=== PATIENT | male | born 2000 | race Caucasian/White ===

== ENCOUNTER 2021-04-27 09:33 | Emergency (ER) | payer BC, OTHER ==
--- NOTE | 2021-04-27 11:04 | EDPHYS ---
Physician Documentation [facility] Name: Raleigh Mendoza Age: 21 yrs Sex: Male : 2000 Arrival Date: 04/27/2021 Time: 09:39 Bed 13 Private MD: ED Physician Jesu Sidhu HPI: 04/27 10:30 This 21 yrs old Male presents to ER via Ambulatory with complaints of Foot Pain. rn 10:30 The patient presents with an injury, pain. The complaints affect the left foot. Onset: rn The symptoms/episode began/occurred 1 week(s) ago. Modifying factors: The symptoms are alleviated by nothing, the symptoms are aggravated by weight bearing. Associated signs and symptoms: Pertinent positives: swelling, Pertinent negatives: weakness. Severity of symptoms: At their worst the symptoms were moderate, in the emergency department the symptoms are unchanged. The patient has not experienced similar symptoms in the past. The patient has not recently seen a physician. REports left foot/heel pain after stomping on hard ground. NO fall or misstep. Reports isolated pain to left heel. Happened last week, pain not going away so concerned is broken. No ankle or achilles pain.. Historical: - Allergies: 09:46 No Known Allergies; ph - PSHx: 09:46 Appendectomy; ph - Immunization history:: Adult Immunizations unknown. - Social history:: Smoking status: Patient denies any tobacco usage or history of. - Family history:: not pertinent. - Hospitalizations: : No recent hospitalization is reported. ROS: 10:30 Constitutional: Negative for fever, chills, and weight loss, MS/Extremity: + injury and rn pain to left heel Exam: 10:30 Constitutional: This is a well developed, well nourished patient who is awake, alert, rn and in no acute distress. MS/ Extremity: Pulses equal, no cyanosis. Neurovascular intact. + mild swelling to left heel. No open wounds. No bony tenderness of rest of foot/ankle. FROM at ankle and no signs of achilles dysfunction. Vital Signs: 09:44 BP 135 / 78; Pulse 78; Resp 18; Temp 98.1; Pulse Ox 100% on R/A; Weight 89.81 kg; ph Height 6 ft. 3 in. (190.50 cm); 10:16 BP 131 / 80; Pulse 80; Resp 16; Pulse Ox 100% ; bp 11:16 BP 123 / 84; Pulse 78; Resp 16; Pulse Ox 100% ; bp 09:44 Body Mass Index 24.75 (89.81 kg, 190.50 cm) ph MDM: 09:40 Patient medically screened. rn 11:03 Differential diagnosis: fracture, sprain, contusion. Data reviewed: vital signs, nurses rn notes, radiologic studies, plain films, and as a result, I will discharge patient. Test interpretation: by ED physician or midlevel provider: plain radiologic studies, Xray left foot neg for acute fracture. Counseling: I had a detailed discussion with the patient and/or guardian regarding: the historical points, exam findings, and any diagnostic results supporting the discharge/admit diagnosis, radiology results, the need for outpatient follow up, to return to the emergency department if symptoms worsen or persist or if there are any questions or concerns that arise at home. Special discussion: I discussed with the patient/guardian in detail that at this point there is no indication for admission to the hospital. It is understood, however, that if the symptoms persist or worsen the patient needs to return immediately for re-evaluation. 04/27 09:49 Order name: XRAY Foot LEFT 3 View rn Administered Medications: No medications were administered Disposition Summary: 04/27/21 11:03 Discharge Ordered Location: Home rn Problem: new rn Symptoms: are unchanged rn Condition: Stable rn Diagnosis - Contusion of left foot rn Followup: rn - With: Private Physician - When: As needed - Reason: Recheck today's complaints, Re-evaluation by your physician Discharge Instructions: - Discharge Summary Sheet rn - Foot Contusion rn Forms: - Medication Reconciliation Form rn - Thank You Letter rn - Antibiotic clothing pattern preparer - Prescription Opioid Use rn Signatures: Dispatcher [employer] Jesu Porter MD MD rn Hall, Patricia, RN RN ph
--- NOTE | 2021-04-27 11:04 | ER ---
Nurse's Notes [facility] Name: Raleigh Mendoza Age: 21 yrs Sex: Male : 2000 Arrival Date: 04/27/2021 Time: 09:39 Bed 13 Private MD: Diagnosis: Contusion of left foot Presentation: 04/27 09:44 Chief complaint: Patient states: " I hit my left foot really hard on a hardwood floor ph last ." Reports pain to L heel. Coronavirus screen: Vaccine status: Patient reports being unvaccinated. Ebola Screen: No symptoms or risks identified at this time. Initial Sepsis Screen: Does the patient meet any 2 criteria? No. Patient's initial sepsis screen is negative. Does the patient have a suspected source of infection? No. Patient's initial sepsis screen is negative. Risk Assessment: Do you want to hurt yourself or someone else? Patient reports no desire to harm self or others. Onset of symptoms was April 27, 2021. 09:44 Method Of Arrival: Ambulatory ph 09:44 Acuity: RAMOS 4 ph Triage Assessment: 09:46 General: Appears in no apparent distress. Behavior is calm, cooperative. Pain: ph Complains of pain in heel of left foot. Musculoskeletal: Circulation, motion, and sensation intact. Range of motion: intact in all extremities. Historical: - Allergies: 09:46 No Known Allergies; ph - PSHx: 09:46 Appendectomy; ph - Immunization history:: Adult Immunizations unknown. - Social history:: Smoking status: Patient denies any tobacco usage or history of. - Family history:: not pertinent. - Hospitalizations: : No recent hospitalization is reported. Screenin:47 Abuse screen: Denies threats or abuse. Denies injuries from another. Nutritional bp screening: No deficits noted. Tuberculosis screening: No symptoms or risk factors identified. Fall Risk None identified. Assessment: 09:47 General: SEE TRIAGE NOTE. bp 10:16 Reassessment: XRAY PENDING. bp 11:16 Reassessment: PT D/C HOME AMBULATORY, DX WITH CONTUSION. bp Vital Signs: 09:44 BP 135 / 78; Pulse 78; Resp 18; Temp 98.1; Pulse Ox 100% on R/A; Weight 89.81 kg; ph Height 6 ft. 3 in. (190.50 cm); 10:16 BP 131 / 80; Pulse 80; Resp 16; Pulse Ox 100% ; bp 11:16 BP 123 / 84; Pulse 78; Resp 16; Pulse Ox 100% ; bp 09:44 Body Mass Index 24.75 (89.81 kg, 190.50 cm) ED Course: 09:39 Patient arrived in ED. ds1 09:40 Jesu Sidhu MD is Attending Physician. rn 09:46 Triage completed. ph 09:46 Nahum Nicole, RN is Primary Nurse. bp 09:46 Arm band placed on Patient placed in an exam room. ph 09:47 Patient has correct armband on for positive identification. Bed in low position. Call bp light in reach. Side rails up X2. 11:12 XRAY Foot LEFT 3 View In Process Unspecified. EDMS 11:16 No provider procedures requiring assistance completed. Patient did not have IV access bp during this emergency room visit. Administered Medications: No medications were administered Outcome: 11:03 Discharge ordered by . rn 11:16 Discharged to home ambulatory. bp 11:16 Condition: stable 11:16 Discharge instructions given to patient, Instructed on discharge instructions, follow up and referral plans. Demonstrated understanding of instructions, follow-up care. 11:17 Patient left the ED. bp Signatures: Dispatcher [employer] EDND Freida Olmos ds1 Jesu Sidhu MD MD rn Hall, Patricia, RN RN Nahum Nicole, HAYDEN RN bp
--- NOTE | 2021-04-27 11:22 | RAD REPORT ---
EXAM DESCRIPTION: RAD - Foot Left 3 View - 04/27/2021 11:12 am CLINICAL HISTORY: pain to heel;Pain Pain and swelling COMPARISON: No comparisons FINDINGS: No bone or joint abnormality is detected.
[2021-04-27 11:29] VITALS: TEMP 98.1; O2SAT 100
[2021-04-27 11:32] VITALS: BP 123/84
== END 2021-04-27 11:17 | disposition home or self-care (01) ==
LOC: ER 09:33
DX: S90.32XA Contusion of left foot, initial encounter (principal)
CPT/HCPCS: 99283